=== PATIENT | male | born 1945 | race Caucasian/White ===

== ENCOUNTER 2022-02-15 07:41 | Outpatient (CLI) | payer MEDICARE | END 2022-02-15 07:42 | disposition home or self-care (01) | LOC: TBSIIMAG 07:41 | PROVIDERS: ATTEND Urology | DX: C61 Malignant neoplasm of prostate (principal) | CPT/HCPCS: 72197; 82565 ==

== ENCOUNTER 2022-03-30 14:02 | Outpatient (CLI) | payer MEDICARE ==
[~2022-03-30 14:02] MED LIST: Magnevist 469MG/ML 20 ML VIAL ONE
== END 2022-03-30 14:03 | disposition home or self-care (01) ==
LOC: TBSIIMAG 14:02
PROVIDERS: ATTEND Urology
DX: C61 Malignant neoplasm of prostate (principal)
CPT/HCPCS: 72197; 82565; A9579